=== PATIENT | male | born 1925 | race Caucasian/White ===

== ENCOUNTER 2017-03-19 10:58 | Day surgery (SDC) | payer MEDICARE, OTHER ==
[~2017-03-19] VITALS: Ht 177.8 cm; Wt 73.5 kg
[2017-03-19] VITALS (8 sets, daily range): BP systolic 140–156; BP diastolic 60–86; PULSE 75–82; RESP 13–17; O2SAT 97–100
[~2017-03-19 10:58] MED LIST: CHOL10008 PO; CLOB15CR3 TOP; HSC.125T PO; LUTE1CAP4 PO; Lactated Ringer's 1,000 ML IV SCH; Levofloxacin 500 mg/100 mL D5W IV ONE; TERA2CAP4 PO; TRIA1CAP5 PO; dramamine
[2017-03-19] MEDS ORDERED: fentaNYL-PF 50 mCg/mL 2 mL Inj ONE (10:59)
[2017-03-19] MEDS ORDERED: EPHEDrine/NS 5 mg/mL 5 mL Syringe ONE (10:59)
[2017-03-19] MEDS ORDERED: Propofol 10 mg/mL 20 mL Inj ONE (10:59)
[2017-03-19] MEDS ORDERED: Dexamethasone 4 mg/mL Inj ONE (10:59)
[2017-03-19] MEDS ORDERED: Ondansetron 2 mg/mL 2 mL Inj ONE (10:59)
[2017-03-19] MEDS ORDERED: levoFLOXacin 500 mg/100 mL D5W Premix IV ONE (11:12)
[2017-03-19] MEDS ORDERED: Lactated Ringer's 1,000 ML IV ONE (11:34)
[2017-03-19] MEDS ORDERED: Lactated Ringer's 500 ML IV PRN (16:33)
[2017-03-19] MEDS ORDERED: Lactated Ringer's 1,000 ML IV SCH (16:33)
--- NOTE | 2017-03-19 16:33 | PCM.HPANE ---
Patient Data Surgeon Admitting Provider: Attending Provider:Maurizio Adams MD Primary Care Physician:Zafar Lane DO Other Provider:Jose Alberto Mccallum Anesthesia Reason for Visit Hydronephrosis Ht/WT & BMI Height (Feet): 5 Height (Inches): 10 Weight (Kilograms): 73.48 Body Mass Index 23.00 Allergies Coded Allergies: amoxicillin (Verified Allergy, Unknown, 07/18/15) clavulanic acid (Verified Allergy, Unknown, 07/18/15) erythromycin base (Verified Allergy, Unknown, 07/18/15) phenylephrine (Verified Allergy, Unknown, 07/18/15) Potassium Clavulanate (Verified Adverse Reaction, Severe, GI UPSET, ) amoxicillin trihydrate (Verified Adverse Reaction, Severe, GI UPSET, 07/18) aspirin (Verified Adverse Reaction, Severe, GI UPSET, 07/18/15) carvedilol (Verified Adverse Reaction, Severe, PROFOUND BRADYCARDIA, 07/18) chlorpheniramine (Unverified Adverse Reaction, Severe, GI UPSET, 07/18/15) codeine (Verified Adverse Reaction, Severe, GI UPSET, 07/18/15) cyclophosphamide (Verified Adverse Reaction, Severe, GI UPSET, 07/18/15) erythromycin ethylsuccinate (Verified Adverse Reaction, Severe, GI UPSET, 07/18/15) metoprolol (Verified Adverse Reaction, Severe, PROFOUND BRADYCARDIA, 07/18) Past Anesthesia History Anesthesia History: Denies:: Anesthesia Reactions, Malignant Hyperthermia Diabetes History Hx Diabetes?: No MRSA MRSA: No Medications Hypertension Medication: Yes Home Meds Incl Beta Allyssa: No Reported Medications Cholecalciferol (Vitamin D3) (Vitamin D3)1,000 Unit Tab.chew1,000 Unit PO DAILY 03/18/17 Lutein/Zeaxanthin (Lutein-Zeaxanthin 25-5 mg Sfgl)1 Each Capsule1 Each PO DAILY 03/18/17 Triamterene/HCTZ 37.5-25 mg 1 Each Capsule1 Capsule PO DAILY Ref 0 03/18/17 Terazosin 2 Mg Capsule2 Mg PO HS Ref 0 03/18/17 Hyoscyamine Sulfate (Levsin)0.125 Mg Tab0.125 Mg PO Q4H PRN For Spasm 03/18/17 [dramamine] 50mg No Conflict Check2 Tab QID 03/18/17 Clobetasol Propionate/Emoll (Clobetasol Emollient 0.05% Crm)15 Gm Cream..g.1 Appl TOP BID #1 TUBE 03/18/17 Discontinued Reported Medications Vit A/Vit C/Vit E/Zinc/Copper (Preservision Areds Softgel)1 Each Capsule1 Each PO DAILY 12/21/15 Cholecalciferol (Vitamin D3) (Vitamin D3)1,000 Unit Tab.chew1,000 Unit PO DAILY 12/21/15 Triamterene/HCTZ 37.5-25 mg 1 Each Capsule1 Capsule PO DAILY Ref 0 07/21/15 Dimenhydrinate (Dramamine)25 Mg Tab.[id number] Mg PO QID 07/18/15 Clobetasol Propionate/Emoll (Clobetasol Emollient 0.05% Crm)15 Gm Cream..g.1 Appl TOP BID PRN skin rash 01/26/15 Terazosin 10 Mg Capsule1 Mg PO HS 05/08/14 History History of ENT Problems?: Yes HEENT History: Positive for:: Hearing Problem Denies:: Cataracts Dysphagia Sinus Problem Denture Type: None Teeth Condition: Within Normal Limits Hx of Heart Problems?: Yes Cardiovascular History: Positive for:: Congestive Heart Failure (cardiomegaly hx) Heart Murmur (ECHO 03/2013) Hypertension Pacemaker Denies:: Abdominal Aortic Aneurism Cardiac Surgery (pacemaker) Chest Pain Edema Irregular Heartbeat Thrombophlebitis Other Cardiac History: > 4METS Hx of Respiratory Problem?: No Respiratory History: Denies:: Asthma COPD Chest Surgery Cough Dyspnea Emphysema Hemoptysis Oxygen Administration Pneumonia Pulmonary Embolism Tuberculosis Use of C-PAP Machine Use of Inhalers / NEBS Hx Neurologic Problems?: Yes Neurological History: Positive for:: Dizziness (hx of menieres disease) Denies:: Alzheimer's Disease CVA Dementia Headaches Parkinson's Disease Seizures Hx of GI Problems?: Yes Hx of Problems?: Yes Genitourinary History: Positive for:: Urinary Tract Infection Denies:: HX of Hemodialysis Kidney Stones HX of Peritoneal Dialysis: No Other Pertinent History: hx of left nephro-ureterectomy, hx of bladder tumors- hydronephrosis current admission problem Male Hx: Positive for:: Prostate Problems (S/P TURP) Denies:: Scrotal Mass Testicular Surgery Skin History: Positive for:: History Skin Disorders? (ATOPIC DERMATITIS) Denies:: Pressure Ulcers Hx Musculoskeletal Problems?: Yes Musculoskeletal History: Positive for:: Back Injury Musculoskeletal Trauma (S/P ORIF FEMUR) Osteoarthritis Denies:: Joint Replacement Hx of Psycho/Social Problems?: No Psycho Social History: Denies:: Anxiety Hx Surgeries?: Yes (ORIF FEMUR,TURP,TURBT X2,NEPHROURETERECTOMY LT) Hx Any Other Health Problems?: Yes Other History: Positive for:: Cancer (RENAL LYMPHOMA, left kidney removal) Hospitalization Denies:: Endocrine Disease Thyroid Disease (HX OF 2NDARY HYPERPARATHYROIDISM) History Blood Transfusions: Positive for:: Blood Transfusions (2006) Denies:: Blood Transfuse Reaction Hx Diabetes: No Hx Alcohol Use: NoHx Substance Use: No Smoking Status: Never Smoker Have You Smoked inLast 12 mo: No Stop/Bang S-Snoring: Do You Snore Loudly: No T-Tired: feel tired, fatigued: No O-Obsered: Observed not breath: No P-Blood Pressure: treated: Yes B- Body Mass Index > 35 kg/m2: No A- Age over 50: Yes N- Neck Large Circumference: No G- Gender Male: Yes MARISELA Total Score: 3 MARISELA Risk Assessment: High Risk, =/>3 Yes Risk Assessment Category Category 1A: Patient has history of documented sleep apnea, and HAS NOT received any narcotic, sedative or anesthesia administration during this stay. Category 1B: Patient has history of documented sleep apnea, and HAS received any narcotic , sedative or anesthesia administration during this stay Category 2: Patient has SUSPECTED Obstructive Sleep Apnea, and HAS received any narcotic , sedative or anesthesia administration during this stay. Category 3: Patient has SUSPECTED Obstructive Sleep Apnea and HAS NOT received narcotic, sedative or anesthesia administration during this stay. Category 4: Outpatient in Procedural Areas with known sleep apnea or who screen positive for High Risk via the STOP/BANG questionnaire. Exam Exam Vital Signs Vital Signs Date Time Temp Pulse Resp B/P Pulse Ox O2 Delivery O2 Flow Rate FiO2 03/19/17 11:29 36.6 80 16 156/64 98 Room Air General Appearance: Alert, Oriented X3, Cooperative, No Acute Distress HEENT/AIRWAY: MP 2 Lungs: Clear to Auscultation, Normal Air Movement Heart: Exam Unremarkable, Regular Rate/Rhythm, No Murmurs/Rubs/Gallops Meds/Labs/Diagnostics Admission Meds Current Medications Lactated Ringer's (Lr) 1,000 ml @ ud STK-MED ONCE IV Last administered on 03/19t 11:34; Start 03/19/17 at 11:34; Stop 03/19/17 at 11:35; Status DC Plan Impression Patient chart reviewed, patient interviewed and anesthestic plan with risks, benefits, and alternatives discussed, and informed consent obtained. NPO per Anesth. Guidelines: Yes ASA Physical Status: ASA3 Severe Disease Anesthetic Plan: GA Bene/Risks/Altern/Consents: Yes HP Complete Prior to Induction: Yes Zafar Avery MD Mar 19, 2017 11:58
[2017-03-19] MEDS ORDERED: fentaNYL-PF 50 mCg/mL 2 mL Inj IVPUSH PRN (16:35)
[2017-03-19] MEDS ORDERED: HYDROmorphone 1 mg/mL Inj IVPUSH PRN (16:35)
[2017-03-19] MEDS ORDERED: EPHEDrine Sulfate 50 mg/mL Inj IVPUSH PRN (16:35)
[2017-03-19] MEDS ORDERED: MetoCLOpramide 5 mg/mL 2 mL Inj IVPUSH PRN (16:35)
[2017-03-19] MEDS ORDERED: Ondansetron 2 mg/mL 2 mL Inj IVPUSH PRN (16:35)
[2017-03-19] MEDS ORDERED: Atropine 0.4 mg/mL Inj IVPUSH PRN (16:35)
[2017-03-19] MEDS ORDERED: Phenylephrine 10,000 mCg/mL Inj IVPUSH PRN (16:35)
[2017-03-19] MEDS ORDERED: Labetalol 5 mg/mL 4 mL Inj IV PRN (16:35)
[2017-03-19] MEDS ORDERED: Iopamidol-300 50 mL Inj IV ONE (16:38)
--- NOTE | 2017-03-19 17:30 | PCM.SURGPO ---
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 R ureteral stent was removed, and a new R ureteral stent was placed. Complications There were no periprocedural complications identified. Surgical Specimen Removed: No Specimen sent to Pathology: No Anesthetic Administered: GA Grafts, Implants: Other (26cm x 8F R ureteral JJ stent (no string)) Output, Estimated Blood Loss: <5 Blood Admin during surgery: No Additional information Patient to return to see me in 1-3 weeks for post-op visit. Maurizio Adams MD Mar 19, 2017 17:30
--- NOTE | 2017-03-19 17:43 | PCM.DISURG ---
Surgical Discharge Instruction Date of Service Mar 19, 2017 Dates of Hospitalization Date of Hospital Admission Mar 19, 2017 Providers Admitting Physician: Maurizio Adams MD Primary Care Physician: Zafar Lane DO Attending Physician: Maurizio Adams MD Discharge Diagnosis Discharge Diagnosis R hydronephrosis, h/o bladder CA Post Operative diagnosis R hydronephrosis, h/o bladder CA Diet Discharge Diet: No restrictions, Other (Drink at least 8 8oz. glasses (2 liters ) of fluids per day as long as there is blood in the urine) Activity Discharge Activity-General: No driving while taking narcotic Dressing and Incisional Care Hygiene: May shower Follow Up Plan Follow-up Provider (F9): Maurizio Adams MD Follow-up appointment: Weeks (1-3 weeks for post-op visit) Call your provider for: Fever, Chills, Vomiting, Other (Pain uncontrolled by pain medication) Maurizio Adams MD Mar 19, 2017 17:43
[2017-03-19] MEDS ORDERED: HYDROcodone-APAP 5-325 mg Tablet PO PRN (17:45)
--- NOTE | 2017-03-19 17:47 | PCM.ANEP1 ---
Post Anesthesia PACU Phase 1 Assessment Vital Signs Vital Signs Date Time Temp Pulse Resp B/P Pulse Ox O2 Delivery O2 Flow Rate FiO2 03/19/17 17:39 80 14 144/85 97 Room Air 03/19/17 17:25 82 16 147/86 98 Room Air 03/19/17 17:21 75 17 155/73 100 Simple Mask 10 03/19/17 17:15 77 15 155/60 100 Simple Mask 10 03/19/17 17:10 36.2 75 13 140/61 99 Simple Mask 10 03/19/17 11:29 36.6 80 16 156/64 98 Room Air Anesthetic Administered: GA Level of Alertness: Sleepy, easy to arouse OTOOLE's with Equal Strength: Yes Pain: No Nausea or Vomiting: No CV Function & Hydration Stable: Yes Airway Device: Oxygen Delivery: Simple Mask Lungs: Clear to Auscultation, Normal Air Movement PACU Phase 2 Assessment Complications: No Follow up Care: N/A Patient Instructions Provided: N/A Zafar Avery MD Mar 19, 2017 17:47
--- NOTE | 2017-03-20 09:14 | DRSVH ---
PROCEDURE: X-RAY RETROGRADE UROGRAPHY INDICATIONS: RIGHT STENT EXCHANGE TECHNIQUE: One intra-operative images acquired by the Urology service. COMPARISON: 07/04/2016. FINDINGS: Single image of right retrograde pyelography shows contrast-filled, nondistended collectin g system. IMPRESSION: Intraoperative right retrograde pyelogram Dictated by: Yunier Basilio M.D. on 03/20/2017 at 9:11 Approved by: Yunier Basilio M.D. on 03/20/2017 at 9:13
--- NOTE | 2017-03-20 14:20 | OP ---
[address] [address] OPERATIVE REPORT PATIENT: GERA ROCA : 1925 MR#: [id number] ADMIT: 03/19/2017 JOB ID: [id number] DATE OF SURGERY: 03/19/2017 PREOPERATIVE DIAGNOSIS(ES): 1. Right hydronephrosis. 2. History of bladder cancer. POSTOPERATIVE DIAGNOSIS(ES): 1. Right hydronephrosis. 2. History of bladder cancer. PROCEDURE: Cystoscopy, right ureteral stent removal, and right ureteral stent placement. SURGEON: Maurizio Adams M.D. FIELD INSTALLATION TECHNICIAN: None. ANESTHESIA: General. ESTIMATED BLOOD LOSS: Less than 5 mL. SPECIMENS: None. DRAINS: A 26 cm x 8-Citizen Of [place] right ureteral double-J stent. COMPLICATIONS: None. CONDITION: Stable. FINDINGS: Cystoscopy revealed no bladder tumors, lesions or calculi. Right ureteral stent was removed and a new right ureteral stent was placed. INDICATIONS: The patient is an 89-year-old male with right hydronephrosis status post cystoscopy, balloon dilation of right ureter and right ureteral stent changed on July 04, 2016. The patient also has history of bladder cancer and the patient had a negative cystoscopy on January 15, 2017. The patient now presents for cystoscopy, right ureteral stent removal, right ureteral stent placement. PROCEDURE: The patient was brought to the operating room and placed supine on the operating room table. The patient was given Levaquin IV antibiotics. Sequential compression device boots were placed. General anesthesia was administered. The patient was brought down into dorsal lithotomy position. The patient was prepped and draped in a standard surgical fashion. A 22-Citizen [place] rigid cystoscope was placed into the distal urethra without difficulty. Cystoscopy revealed normal distal urethra status post TUR defect with mild prostatic regrowth and mild trilobar prostatic hypertrophy. Mild to moderately trabeculated bladder. No bladder tumors, lesions or calculi and the distal end of the right ureteral stent seen emerging from the right ureteral orifice with the stent seen in good position. The distal end of the stent was grasped with a cystoscopic grasper and brought to the urethral meatus. A PTFE guidewire was advanced through the old stent and up the right ureter and into the right renal collecting system. The old stent was removed and discarded in its entirety. A 5-Citizen [place] open-ended catheter was passed over the guidewire up the right ureter into the right renal pelvis. The guidewire was removed. A small amount of contrast was instilled through the open-ended catheter into the right renal collecting system to illuminate the right renal collecting system to aid in stent placement. No hydronephrosis was seen. The PTFE guidewire was advanced through the open-ended catheter up the right ureter into the right renal pelvis. Open-ended catheter was removed. A 26 cm x 8-Citizen [place] ureteral double J stent, with the stent string removed prior to stent placement, was passed over the guidewire through the cystoscope and passed up the right ureter and placed so that the proximal pigtail was located in the right renal pelvis and distal pigtail was located in the bladder. The guidewire was removed. Correct positioning of the stent was confirmed both fluoroscopically and under direct visualization using the cystoscope. Good efflux of contrast could be seen draining from the distal end of the stent into the bladder further confirming correct stent positioning. Thus right ureteral stent was removed and a new right renal stent was placed without difficulty. The bladder was drained via the cystoscope. The cystoscope was then removed from the patient. Skin was cleaned and dried. The patient was placed in supine position. The patient was awakened from general anesthesia and transferred to the recovery room in stable condition. The patient tolerated the procedure well. The postop plan is for the patient to return to see me in the office in 1-3 weeks for postoperative visit.
[2017-03-20] MEDS ORDERED: DIME25TA2 PO (15:06)
[2017-03-20] MEDS ORDERED: CLOB50FO8 TP (15:06)
[2017-03-20] MEDS ORDERED: HALO50CR2 TP (15:06)
== END 2017-03-19 23:59 | disposition home or self-care (01) ==
LOC: SAS 10:58
PROVIDERS: ATTEND Urology
DX: N13.30 Unspecified hydronephrosis (principal); R31.0 Gross hematuria; I12.9 Hypertensive chronic kidney disease with stage 1 through stage 4 chronic kidney disease, or unspecified chronic kidney disease; N18.3 Chronic kidney disease, stage 3 (moderate); I50.9 Heart failure, unspecified; I44.7 Left bundle-branch block, unspecified; N40.0 Benign prostatic hyperplasia without lower urinary tract symptoms; M19.90 Unspecified osteoarthritis, unspecified site; Z85.51 Personal history of malignant neoplasm of bladder; Z85.72 Personal history of non-Hodgkin lymphomas; Z85.53 Personal history of malignant neoplasm of renal pelvis; Z95.0 Presence of cardiac pacemaker
CPT/HCPCS: 52332; 74420; C2617; J1100; J2405; J3010; J7120; Q9967